=== PATIENT | male | born 1940 | race Caucasian/White ===

== ENCOUNTER 2017-03-02 08:30 | Inpatient (IN) | payer MEDICARE, OTHER ==
[2017-02-24 13:44] LABS: ABSOLUTE BASOPHILS 0.1 thou/uL (0.0-0.2); ABSOLUTE EOSINOPHILS 0.4 thou/uL (0.0-0.7); ABSOLUTE LYMPHOCYTES 2.3 thou/uL (0.8-5.3); ABSOLUTE MONOCYTES 0.6 thou/uL (0.0-1.2); ABSOLUTE NEUTROPHILS 5.6 thou/uL (1.6-8.1); BASOPHILS 1.3 %; EOSINOPHILS 4.6 %; HEMATOCRIT 43.1 % (42.0-52.0); HEMOGLOBIN 14.5 gm/dL (14.0-18.0); LYMPHOCYTES 25.4 %; MCH 30.5 pg (26.0-34.0); MCHC 33.6 g/dL (28.0-37.0); MCV 90.9 fL (80.0-100.0); MONOCYTES 6.6 %; MPV 7.6 fl. (7.2-11.1); NUCLEATED RBCS 0 /100WBC; PLATELET COUNT* 286 thou/uL (150-400); POLYS 62.1 %; RBC 4.74 mil/uL (4.50-6.00); RDW-CV 13.6 % (10.5-14.5)
[2017-02-24 13:58] LABS: APTT 26.3 Seconds (25.0-31.3); PROTIME 10.1 Seconds (9.20-11.50)
[2017-02-24 14:04] LABS: ALBUMIN 3.7 g/dL (3.4-5.0); CALCIUM 9.2 mg/dL (8.5-10.1); CREATININE 1.5 mg/dL (0.6-1.3); POTASSIUM 3.7 mmol/L (3.5-5.1); TOTAL BILIRUBIN 0.7 mg/dL (<0.1-1.0); TOTAL PROTEIN 7.7 g/dL (6.4-8.2)
[2017-02-24 14:59] LABS: ESR (SEDRATE) 7 mm/hr (0-20)
--- NOTE | 2017-02-24 16:50 | EKG ---
[place] [address] ELECTROCARDIOGRAM REPORT Name: LISA PRAJAPATI Room: PRE IN [facility]#: [id number] Admission: Attend Phys: Brook Watkins Discharge: Date of : 44 Report #: [id number] THIS REPORT FOR: //name// [facility] Test Date: 2017-02-24 Test Time: 13:09:28 Pat Name: LISA PRAJAPATI Department: Room: Gender: M Snowsport Instructor: : 1940 Requested By: Mariusz Tse Order Number: [id number] MD: Ranjit Hilliard Measurements Intervals [place] Rate: 62 P: 49 [place]: 189 QRS: -54 QRSD: 103 T: 38 QT: 410 QTc: 417 Interpretive Statements Sinus rhythm Left anterior fascicular block Baseline wander in lead(s) II,aVR,V2,V3,V4,V5,V6 No previous ECG available for comparison Electronically Signed On 02-24-2017 16:50:23 ART HISTORIAN by Ranjit Hilliard [email or web address] <ELECTRONICALLY SIGNED> By: Ranjit Hilliard MD, [facility] 02/24/17 3190 1309 1309 Ranjit Hilliard MD, FACC /EPI
[2017-02-25 17:07] LABS: GLYCOHEMOGLOBIN (HGB A1C) 6.5 % (4.8-5.6)
[~2017-03-02] VITALS: Ht 172.7 cm; Wt 86.2 kg
[~2017-03-02 08:30] MED LIST: ATORVASTATIN CA40 MG PO; CHILDREN'S ASPI81 M1 PO; GLIPIZIDE 10 MG10 MG PO; LISINOPRIL20 MG PO; METFORMIN HCL500 MG PO; SYNTHROID100 MCG PO
[2017-03-02 10:29] VITALS: BP 129/84
[2017-03-02 15:45] VITALS: BP 140/80
--- NOTE | 2017-03-02 18:08 | NUR ---
ALERT AND ORIENTED X4. UP WITH ASSIST X1 WITH WALKER AND GAIT BELT. IV IS PATENT AND INFUSING. DENIES NEED FOR PAIN MEDICATION. IV NAUSEA MEDICATION GIVEN IN PACU, NO COMPLAINTS SINCE ARRIVING ON UNIT. CAP-NO IN PLACE. HEMOVAC IN PLACE. VSS ON 2L O2. CALL LIGHT IS WITHIN REACH. HOURLY ROUNDS HAVE BEEN MAINTAINED SINCE ARRIVING ON UNIT. NURSING WILL CONTINUE TO MONITOR.
--- NOTE | 2017-03-02 18:21 | NUR ---
PATIENT ARRIVED TO UNIT AT 1500. ALERT AND ORIENTED X4. IV SALINE LOCKED AT THIS TIME. DENIES PAIN AT THIS TIME. NAUSEA MANAGED WITH IV NAUSEA MEDICATION IN PACU. VSS ON 2L O2. PATIENT HAS BEEN ORIENTED TO ROOM. CALL LIGHT IS WITHIN REACH. NURSING WILL CONTINUE TO MONITOR.
[2017-03-02 20:00] VITALS: BP 121/78
[2017-03-02 23:54] VITALS: BP 95/58
[2017-03-03 04:23] LABS: HEMATOCRIT 35.8 % (42.0-52.0)
[2017-03-03 04:37] VITALS: BP 102/67
--- NOTE | 2017-03-03 05:24 | NUR ---
PATIENT ALERT AND ORIENTED. VITALS STABLE. ON 2L OF OXYGEN, CAPNO IN PLACE. PAIN CONTROLLED WITH PO MEDICATION. RIGHT KNEE DRESSING C/D/I. HEMOVAC IN PLACE. VOIDS PER URINAL, SMALL AMOUNTS AT A TIME. HOURLY ROUNDS. BED ALARM IN USE. NURSING WILL CONTINUE TO MONITOR.
[2017-03-03 08:00] VITALS: BP 98/67
--- NOTE | 2017-03-03 14:18 | NUR ---
PT.LIVES ALONE. HE IS NORMALLY INDEPENDENT AT HOME. HIS DAUGHTER LIVES 2 DOORS DOWN. HE SAID HIS SISTER SHOULD BE ABLE TO COME TO STAY WITH HIM AT LEAST ONE NIGHT. PT.IS NON COMMITAL ABOUT HOW MANY NIGHTS SHE COULD STAY. TOLD HIM 'S RECOMMEND 3-4 DAYS/NIGHTS. HE ALSO DOES NOT HAVE PRESCRIPTION DRUG COVERAGE. HE USUALLY PAYS FOR HIS MEDS OUTRIGHT. HIS PHARMACY SAID ELIQUIS WOULD BE $200 WITH OUT INS. HE DOES HAVE A FRONT WHEEL WALKER. HE WOULD WANT TO USE OUTPT. THERAPY IN [facility] IF HE GOES HOME. HE SAID HE HAS SOMEONE THAT COULD DRIVE HIM. PLAN B WOULD BE TO GO TO THE [facility]ICAL [facility] SWING BED FOR A SKILLED STAY. REFERRAL FAXED TO [facility]-[phone]. HE CHOSE DR.RICK CORTEZ ADMITTING DRNestor, HIS PCP DOES NOT GO TO THE HOSPITAL. SHE WILL LET REVIEW INFORMATION AND CALL CM BACK. THIS PLAN WOULD BENEFIT HIM HE WOULD HAVE 24/7 NURSING CARE AND BE ABLE TO RECEIVE HIS ELIQUIS. CM WILL FOLLOW.
[2017-03-03 16:07] VITALS: BP 112/81
--- NOTE | 2017-03-03 16:24 | NUR ---
[facility] SWING BED SW CALLED BACK AND SAID THEY COULD ACCEPT PT. ON MONDAY IF READY FOR DISCHARGE. REPORT WOULD NEED TO BE CALLED TO NURSING AND DISCHARGE ORDERS FAXED. THEY CANNOT ARRANGE TRANSPORTATION ON MON. [facility] FAX:[phone]/ PHONE:[phone]RICK CORTEZ WOULD BE ADMITTING
--- NOTE | 2017-03-03 17:33 | NUR ---
WILL CHECK WITH CASE MANAGEMENT TOMORROW TO SEE IF PT. NEEDS TO BE SEEN FOR O.T. SERVICES TO BE ACCEPTED TO SNF. OTHERWISE, WILL FOLLOW O.T. PROTOCOL TO DEFER PT. TO P.T. AND NURSING.
[2017-03-03 20:00] VITALS: BP 111/75
--- NOTE | 2017-03-03 20:19 | NUR ---
PATIENT COMFORTABLE REPORTED OFF TO NOC NURSE.
[2017-03-04 00:14] VITALS: BP 130/72
[2017-03-04 04:19] LABS: HEMATOCRIT 32.6 % (42.0-52.0); HEMOGLOBIN 11.1 gm/dL (14.0-18.0)
[2017-03-04 04:23] VITALS: BP 118/71
--- NOTE | 2017-03-04 05:02 | NUR ---
ASSUMED CARE OF PATIENT AT APPROXIMATELY 2000. PATIENT A/O X 4 AND VSS. PATIENT C/O GROIN PAIN X 1 OVERNIGHT. POST OP DAY 1, HEMOVAC HAS BEEN REMOVED, KELI HOSE IN PLACE, AND CHAMP WRAP ON LEG C/D/I. PATIENT CONTINUES TO HAVE OXYGEN SATS WNL ON RA. HOURLY ROUNDS PERFORMED. NURSING TO FOLLOW-UP NECESSARY. ALL FALL PRECAUTIONS IN PLACE, INCLUDING CALL LIGHT WITHIN REACH. WILL CONTINUE TO MONITOR CLOSELY.
[2017-03-04 08:42] VITALS: BP 111/82
--- NOTE | 2017-03-04 15:45 | NUR ---
DISCUSSED DISCHARGE PLANNED FOR MONDAY TO [facility] SWING BED FOR THERAPIES. HE WAS AGREEABLE. DISCUSSED TRANSPORTATION. HE SAID HIS SISTER CAN TAKE HIM UP THERE. TOLD HIM TO PLAN FOR DISCHARGE TIME BETWEEN 1-2PM TOMORROW. HE IS NOT TO TAKE CPM WITH HIM. SNF WILL ORDER A CPM FOR HIM. SEE CASE MANAGEMENT NOTE FROM 03/03 FOR PHONE NUMBER AND FAX TO [facility].
[2017-03-04 17:17] VITALS: BP 103/66
--- NOTE | 2017-03-04 17:19 | NUR ---
ASSUMED CARE OF PATIENT AFTER REPORT THIS MORNING. PATIENT AWAKE, ALERT, AND ORIENTED APPROPRIATELY. PHYSICAL ASSESSMENT COMPLETED AND CHARTED. COMPLAINED OF PAIN THIS SHIFT. GIVEN PRN AND SCHEDULED MEDICATIONS, SEE EMAR FOR DOCUMENTATION. VITAL SIGNS STABLE. OXYGEN SATURATION WITHIN NORMAL LIMITS ON ROOM AIR. PATIENT TRANSFERS AND AMBULATES WITH ASSISTANCE FROM STAFF. USES CALL LIGHT APPROPRIATELY. DENIES NEEDS AT THIS TIME. CALL LIGHT WITHIN REACH. NURSING WILL CONTINUE TO MONITOR.
[2017-03-04 19:35] VITALS: BP 94/68
[2017-03-05] VITALS: BP 109/77
[2017-03-05 04:17] VITALS: BP 109/72
--- NOTE | 2017-03-05 05:04 | NUR ---
PATIENT HAS REMAINED ALERT AND ORIENTED X 4 THROUGHOUT THE SHIFT AND RESTING QUIETLY ON HOURLY ROUNDS. HAS DENIED NEED FOR PAIN MEDICATION OVERNIGHT, WILL, HOWVEVER, OFFER SOMETHING PRIOR TO EARLY AM CPM SESSION. PATIENT TOLERATED 0-80 DEGREES FLEXION AT HS X 2 HOURS. DRESSING RIGHT KNEE CLEAN AND DRY. VOIDING PER URINAL WITH ADEQUATE OUTPUT. PASSING GAS, NO BM. MILK OF MAGNESIA AT HS WITH SOFTNER PROVIDED. VITAL SIGNS STABLE. HAVE NOT TRANSFERED OUT OF BED TONIGHT. INDEPENDENT WITH MOBILITY IN THE BED. PATIENT IS PLANNING ON DISCHARGE TODAY TO [facility] BED. PROGRESSING TOWARDS DISCHARGE GOALS. CONTINUE TO MONITOR.
[2017-03-05 07:54] VITALS: BP 103/67
[2017-03-05] MEDS ORDERED: HYDROCODONE-AP1 EAC6 PO (10:47)
[2017-03-05] MEDS ORDERED: ELIQUIS2.5 MG PO (10:48)
[2017-03-05] MEDS ORDERED: OXYCODONE HCL 55 MG PO (10:48)
[2017-03-05] MEDS ORDERED: COLACE100 MG PO (10:49)
[2017-03-05] MEDS ORDERED: MILK OF MA2400 MG/10 PO (10:52)
[2017-03-05] MEDS ORDERED: METAMUCIL1 EAC1 PO (10:52)
[2017-03-05] MEDS ORDERED: ASPIRIN325 PO (10:56)
[2017-03-05 10:57] VITALS: BP 103/67
--- NOTE | 2017-03-05 13:05 | NUR ---
ASSUMED CARE OF PATIENT AFTER REPORT THIS MORNING. PATIENT AWAKE, ALERT, AND ORIENTED APPROPRIATELY. PHYSICAL ASSESSMENT COMPLETED AND CHARTED. COMPLAINED OF PAIN THIS SHIFT. GIVEN PRN AND SCHEDULED MEDICATIONS, SEE EMAR FOR DOCUMENTATION. PATIENT HAS TRANSFERRED AND AMBULATED WITH ASSIST FROM STAFF, USES CALL LIGHT APPROPRIATELY. RECEIVED ORDERS TO TRANSFER PATIENT TO [facility] FOR SWING BED. REPORT CALLED AND GIVEN TO JOSUE COLÓN. DISCHARGE PAPERWORK COMPLETED AND SIGNED BY ALL APPROPRIATE PARTIES, ON PATIENT'S CHART. IV DISCONTINUED. PATIENT'S RIDE WILL BE HERE AT 1400 TO TRANSFER PATIENT TO [facility] THEY DO NOT HAVE TRANSPORTATION ON SUNDAYS. NURSING WILL CONTINUE TO MONITOR.
--- NOTE | 2017-03-05 13:57 | NUR ---
PATIENT'S RIDE ARRIVED TO TRANSPORT PATIENT TO [facility]. PATIENT DISCHARGED AT THIS TIME.
--- NOTE | 2017-03-07 10:06 | S ---
[address] [address] SURGICAL PATH RPT PROCEDURE Name: SANTANA PRAJAPATI Room: [address] IN [facility].#: [id number] Admission: 03/02/17 Date of : 44 Discharge: 03/05/17 Report #: [id number] Path Case #: [id number] PATHOLOGY REPORT COLLECTION DATE: 03/02/2017 RECEIVED DATE: 03/02/2017 SUBMITTING PHYS: Dr. Mariusz Tse OTHER PHYS: Dr. Bernard Hankins SPECIMEN(S) RECEIVED: A.Right knee bone and tissue * * * * * * * * * * * * FINAL DIAGNOSIS: Right knee bone and tissue, total knee replacement: - Benign synovium, benign meniscus and dense fibrous connective tissue with microcystic degenerative changes and benign bone and cartilage with severe degenerative changes. (LEEANN:mgr; 03/06/2017) PATHOLOGIST: Ezequiel Duarte M.D. REPORT ELECTRONICALLY SIGNED BY: Ezequiel Duarte M.D. DATE/TIME: 03/06/2017 15:53 * * * * * * * * * * * * GROSS PATHOLOGY: Received in formalin labeled "Santana Prajapati, right knee bone and tissue," are multiple segments of bone, including tibial plateau, measuring 14.9 x 12.3 x 2.8 cm in aggregate dimensions admixed with soft tissue; meniscus is present. The specimen shows focal eburnation of the articular surfaces. In Store Representative sections of bone and soft tissue are submitted in cassette A1, following decalcification. (DAC; 03/03/2017) CLINICAL HISTORY: Right knee degenerative joint disease INITIAL CPT CODE(S): A; 33659, 18325 Professional services performed by [facility] [place] [address] Technical services performed by [facility] at [address] [place] [address] SURGICAL PATH RPT PROCEDURE Name: SANTANA PRAJAPATI Room: [address]#: [id number] Admission: 03/02/17 Date of : 44 Discharge: 03/05/17 Report #: [id number] Path Case #: [id number] [place] [address]. [facility] [address] [place] [address] PHONE: [phone] DIRECTOR: Anderson Anaya M.D. * * * END OF REPORT * * *
--- NOTE | 2017-03-16 12:47 | OP ---
[address] [address] OPERATIVE REPORT Name: LISA PRAJAPATI Room: [address]#: [id number] Admission: 03/02/17 Attend Phys: Brook Watkins Discharge: 03/05/17 Date of : 44 Report #: [id number] THIS REPORT FOR: //name// CC: Mariusz Glez DICTATED BY: Nick Tellez DATE OF SERVICE: 03/02/2017 PREOPERATIVE DIAGNOSIS: Advanced degenerative joint disease, right knee. POSTOPERATIVE DIAGNOSIS: Advanced degenerative joint disease, right knee. PROCEDURE: Right total knee arthroplasty utilizing the following components, a RideApart MicroPort total knee evolution arthroplasty system with the following components: 1. A size 6 PS femoral component. 2. A size 6+ tibial baseplate. 3. A size 32 mm tri-peg patella. 4. A 14-mm PS polyethylene insert. 5. Bone cement. SURGEON: Mariusz Tse DO DIAMOND BLENDER: Nick Tellez DO ANESTHESIA: General with adductor canal block. ESTIMATED BLOOD LOSS: 100 mL. ANTIBIOTICS: 2 grams Ancef IV prior to incision. TOURNIQUET TIME: 66 minutes at 300 mmHg. COMPLICATIONS: None. SPECIMENS: Bone sent for gross pathology. DRAINS: One medium Hemovac. CONDITION OF THE PATIENT: Stable to PACU. FINDINGS: Surgeon inspection of the joint demonstrated severe degenerative joint disease with erosion of the cartilage over the medial femoral condyle. [facility] [address] [place] [address] OPERATIVE REPORT Name: LISA PRAJAPATI Room: [address] IN .R.#: [id number] Admission: 03/02/17 Attend Phys: Brook Watkins Discharge: 03/05/17 Date of : 42 Report #: [id number] There were also significant bony sclerosis and osteophytic changes throughout all 3 compartments. There was irregular appearing joint effusion. INDICATIONS: The patient is a pleasant 77-year-old male with longstanding right knee pain. He has had previous arthroscopic surgery to the knee and also had extensive nonoperative care including intra-articular steroid injections and oral anti-inflammatories. He has considerable pain with activities of daily living. After discussing the risks, benefits, complications, alternatives and indications to right total knee arthroplasty including, but not limited to bleeding, infection, neurovascular injury, continued pain, need for further surgery, DVT, PE and the inherent risk of anesthesia, he is willing to proceed. Consent is available in the chart. DESCRIPTION OF PROCEDURE: The patient was seen in preoperative holding and operative site initialed by surgeon. He was brought back to operative suite, placed on a well-padded table in supine position. General anesthesia was induced. A well-padded tourniquet was placed on right upper thigh. Right lower extremity was sterilely prepped and draped in normal fashion. Time-out was performed in usual fashion, all attendances were in agreement. The leg was exsanguinated via gravity and the tourniquet inflated to 300 mmHg. A midline incision was made with a 10-blade scalpel through the subcutaneous tissue. A new knife blade was then used to make a medial parapatellar arthrotomy. Patella was everted and the anterior horn of the medial and lateral meniscus was excised. The Hoffa's fat pad was trimmed and the ACL and PCL were excised sharply. Intramedullary reamer was then used to gain access to the femoral canal. A distal femoral cutting block was pinned, taken extra 2 mm resection for preoperative extension lag. Oscillating saw was used to make a distal femoral cut through captured cutting block. Excess bone was removed. The distal femur was then sized to a size 6 and a 4-in-1 cutting block pinned into place with 3 degrees of external rotation with regard to posterior condylar axis. This was perpendicular to Whitesides of line. All four cuts were made with oscillating saw through the captured cutting block. Excess bone was removed. The box cutting guide was then assembled and marked and pinned into place. Oscillating saw was then used in combination with an osteotome to resect the femoral box. Bone was removed. Attention was then turned to the tibia where the medial and lateral meniscus was excised with an electrocautery and the extramedullary guide was aligned with the medial third of the tibia tubercle, tibial crest, and the middle of talus. This was pinned into place. The oscillating saw was used to make a proximal tibia cut in standard fashion. Excess bone was removed. The knee was brought into full extension and there was adequate bony resection. The knee was once again flexed and the tibia was sized and trial baseplate was pinned into place. Trial femoral component was impacted into place and a trial spacer was placed. The knee was brought through full range of motion, had excellent stability to varus and valgus testing and full range of motion. The attention was then turned to the patella where electrocautery was used to perform neurolysis of the patella and an oscillating [address] [address] OPERATIVE REPORT Name: LISA PRAJAPATI Brook Room: [address]#: [id number] Admission: 03/02/17 Attend Phys: Bernard AleishaBrook Avalos Discharge: 03/05/17 Date of : 44 Report #: [id number] saw used to make a freehand patellar cut in a standard fashion. The patella was sized and 3-peg holes were drilled. Trial patellar button was placed and the knee was brought through full range of motion showing excellent tracking of the patella. The proximal tibia was prepared with a cruciform punch and reamer in standard fashion. All trial components were removed and all bony surfaces were thoroughly irrigated with normal saline. Cement was mixed on the back table and applied to the final component and applied the bony surfaces. These were impacted into place and excess cement was removed. A 14-mm spacer was used for compression while cement was hardening. The knee was thoroughly irrigated with normal saline. Topical TXA was applied to the joint and allowed to congeal for 5 minutes. Once allowing adequate time for the cement to harden, the knee was brought through full range of motion and a 14-mm spacer was found to be most stable and still allow full range of motion. The proximal tibia was exposed and a final polyethylene insert was impacted into place. A medium Hemovac was placed in standard fashion and tourniquet was deflated for a total tourniquet time of 66 minutes. Electrocautery was utilized for hemostasis. The knee was thoroughly irrigated with normal saline and the medial parapatellar arthrotomy was closed with #1 Vicryl in ejyimk-lw-nnakc fashion. Subcutaneous tissues was thoroughly irrigated with normal saline and the subcutaneous tissue was closed with 2-0 Vicryl in simple inverted interrupted fashion followed by running 3-0 Stratafix on the skin and skin glue. Dressing was placed in the form of Mepilex Ag dressing, 4 x 4s, ABDs, soft roll and compressive Inderjit wrap with a drain sponge. The patient was awoken from general anesthesia and brought to PACU in stable fashion. He tolerated the procedure well. Sponge and needle counts were correct times 2. Dr. Tse was present throughout all critical aspects of the surgery. <ELECTRONICALLY SIGNED> By: Mariusz Tse DO 03/16/17 1247 1350 1533Gkuldip Tse DO /nt
== END 2017-03-05 13:58 | DRG 470 ==
LOC: M.TBA 08:30 → M.ORTHSURG 08:30 → M.PRE 08:33 → M.ORTHSURG 15:01
PROVIDERS: Orthopaedic Surgery; ADMIT Internal Medicine
PROC: 0SRC0J9 Replacement of Right Knee Joint with Synthetic Substitute, Cemented, Open Approach (ICD-10-PCS; principal; 2017-03-02)
PROC: 3E0T3BZ Introduction of Anesthetic Agent into Peripheral Nerves and Plexi, Percutaneous Approach (ICD-10-PCS; 2017-03-02)
DX: M17.11 Unilateral primary osteoarthritis, right knee (principal); E11.9 Type 2 diabetes mellitus without complications; E03.9 Hypothyroidism, unspecified; E78.5 Hyperlipidemia, unspecified; R33.9 Retention of urine, unspecified; Z79.84 Long term (current) use of oral hypoglycemic drugs

== ENCOUNTER 2018-02-08 07:04 | Inpatient (IN) | payer MEDICARE, OTHER ==
[2018-02-01 10:08] LABS: ABSOLUTE EOSINOPHILS 0.3 thou/uL (0.0-0.7); ABSOLUTE LYMPHOCYTES 2.1 thou/uL (0.8-5.3); ABSOLUTE MONOCYTES 0.5 thou/uL (0.0-1.2); ABSOLUTE NEUTROPHILS 4.4 thou/uL (1.6-8.1); BASOPHILS 0.6 %; EOSINOPHILS 4.1 %; HEMOGLOBIN 13.5 gm/dL (14.0-18.0); LYMPHOCYTES 28.5 %; MCH 29.4 pg (26.0-34.0); MCHC 32.9 g/dL (28.0-37.0); MCV 89.3 fL (80.0-100.0); MONOCYTES 7.3 %; MPV 7.4 fl. (7.2-11.1); NUCLEATED RBCS 0 /100WBC; PLATELET COUNT* 265 thou/uL (150-400); POLYS 59.5 %; RBC 4.58 mil/uL (4.50-6.00); RDW-CV 14.2 % (10.5-14.5); WBC 7.5 thou/uL (4.0-11.0)
[2018-02-01 10:18] LABS: ALBUMIN 3.6 g/dL (3.4-5.0); CALCIUM 9.2 mg/dL (8.5-10.1); CREATININE 1.2 mg/dL (0.6-1.3); TOTAL BILIRUBIN 0.4 mg/dL (<0.1-1.0); TOTAL PROTEIN 7.1 g/dL (6.4-8.2)
[2018-02-01 10:40] LABS: APTT 27.8 Seconds (25.0-31.3); PROTIME 10.1 Seconds (9.20-11.50)
[2018-02-01 11:40] LABS: ESR (SEDRATE) 14 mm/hr (0-20)
[2018-02-01 21:07] LABS: GLYCOHEMOGLOBIN (HGB A1C) 6.7 % (4.8-5.6)
--- NOTE | 2018-02-02 14:51 | EKG ---
[place] [address] ELECTROCARDIOGRAM REPORT Name: LISA PRAJAPATI [facility] IN [facility]#: [id number] Admission: Attend Phys: Mariusz Tse, Discharge: Date of : 44 Report #: [id number] THIS REPORT FOR: //name// [facility] Test Date: 2018-02-01 Test Time: 10:25:54 Pat Name: LISA MATAON Department: Room: Gender: M Promotion Specialist: : 1940 Requested By: Mariusz Tse Order Number: [id number] Reading MD: Nolan Torre Measurements Intervals [place] Rate: 55 P: 47 SD: 210 QRS: -45 QRSD: 101 T: 10 QT: 447 QTc: 428 Interpretive Statements Sinus rhythm LAD, consider left anterior fascicular block Compared to ECG 02/24/2017 13:09:28 No significant changes Electronically Signed On 02-02-2018 14:51:14 IMPORT EXPORT AGENT by Nolan Torre [email or web address] <ELECTRONICALLY SIGNED> By: Nolan Torre MD, [facility] 02/02/18 1451 1025 1025 Nolan Torre MD, FACC /EPI
[~2018-02-08] VITALS: Ht 172.7 cm; Wt 86.2 kg
--- NOTE | ~2018-02-08 | OP ---
[facility] [address] [place] [address] OPERATIVE REPORT Name: LISA PRAJAPATI Room: [address] IN .R.#: [id number] Admission: 02/08/18 Attend Phys: Brook Watkins Discharge: Date of : 44 Report #: [id number] THIS REPORT FOR: //name// CC: Mariusz Glez DICTATED BY: Keon Lucas DO DATE OF SERVICE: 02/08/2018 PREOPERATIVE DIAGNOSIS: Left shoulder rotator cuff arthropathy. POSTOPERATIVE DIAGNOSIS: Left shoulder rotator cuff arthropathy. PROCEDURE: Left reverse total shoulder arthroplasty. ORTHOPEDIC IMPLANTS: Tornier size 4B humeral stem with a high offset reversed tray and Tornier 9 mm reversed insert, Tornier 25 x 30 mm threaded baseplate and Tornier 36 mm centered glenosphere. SURGEON: Mariusz Tse DO. ASSISTANTS: 1. Keon Lucas DO. 2. Fletcher Christianson DO. 3. Ester Dillon DO. ESTIMATED BLOOD LOSS: 100 mL. PREOPERATIVE ANTIBIOTICS: 2 grams Ancef. SPECIMENS: None. COMPLICATIONS: None. DRAINS: None. CONDITION: The patient is stable to PACU. INDICATIONS FOR PROCEDURE: This is a 78-year-old male who has been dealing with left shoulder pain and dysfunction with some pseudoparalysis for the last several months. He has known rotator cuff arthropathy with a high riding humeral head. DESCRIPTION OF PROCEDURE: Once written and verbal consent was obtained, the [facility] [address] [place] [address] OPERATIVE REPORT Name: LISA PRAJAPATI Room: [address] IN [facility].#: [id number] Admission: 02/08/18 Attend Phys: Brook Watkins Discharge: Date of : 44 Report #: [id number] patient was taken from the preoperative holding area to the operating suite, given the benefit of general anesthesia and placed in beach chair with the left upper extremity was sterilely prepped and draped in crime scene investigator manner. Timeout was performed to verify the correct operative site, location and procedure. Next, a standard deltopectoral incision was made just lateral to the coracoid process. Sharp dissection down to the level of the deltoid and the cephalic vein was identified and the deltopectoral interval was identified and subdeltoid adhesions were broken by blunt dissection and Salazar deltoid retractor was used to retract the deltoid. Next, the conjoined tendon was retracted medially and a soft tissue subscap peel technique was performed to dislocate the left shoulder. Next, an entry guide was used to make our humeral cut at 30 degrees of retroversion. Next, entry reamers and broaches were used and broached up to a size 4B implant. Next, attention was taken to the glenoid as the posterior glenoid retractor was placed. The subscap and anterior glenohumeral ligaments were and ligaments resected. The labrum was resected 360 degrees. Next, a guidepin was placed and glenoid surface was reamed and the glenosphere center hole was drilled and a glenoid baseplate with PEG was secured in 2 places with 2 screws, one superiorly and one inferiorly were placed in the baseplate and next a 36 mm glenosphere was impacted into place. Next, attention was taken back to the humerus. A trial component with a high offset and 9 mm polyethylene insert was utilized, found to have appropriate tension and length and stability. These trial components were removed and final implants were impacted into place. There was a nice firm reduction and no instability through range of motion. The wound was thoroughly irrigated. The subscap was repaired with 2-0 FiberWire suture on the lesser tuberosity. Next, the deltoid interval was closed with a #1 Vicryl suture, 2-0 Vicryl suture in the subcutaneous tissues as well as running Stratafix and surgical glue and a silver dressing. The patient was placed in a SlingShot. The patient was awakened and taken to PACU in stable condition. By: 1246 [id number] Tse DO /philipp
[~2018-02-08 07:04] MED LIST changes: +ASPIRIN325 PO; +COLACE100 MG PO; +ELIQUIS2.5 MG PO; +HYDROCODONE-AP1 EAC6 PO; +LISINOPRIL-HCT1 EAC1 PO; +METAMUCIL1 EAC1 PO; +MILK OF MA2400 MG/10 PO; +OXYCODONE HCL 55 MG PO; +TYLENOL EXTRA500 MG PO
[2018-02-08 09:00] VITALS: BP 142/84
[2018-02-08 14:52] VITALS: BP 123/72
[2018-02-08 15:24] LABS: ABSOLUTE BASOPHILS 0.1 thou/uL (0.0-0.2); ABSOLUTE EOSINOPHILS 0.3 thou/uL (0.0-0.7); ABSOLUTE LYMPHOCYTES 2.9 thou/uL (0.8-5.3); ABSOLUTE MONOCYTES 0.7 thou/uL (0.0-1.2); ABSOLUTE NEUTROPHILS 4.8 thou/uL (1.6-8.1); BASOPHILS 0.6 %; EOSINOPHILS 3.8 %; HEMATOCRIT 39.6 % (42.0-52.0); HEMOGLOBIN 13.3 gm/dL (14.0-18.0); LYMPHOCYTES 32.8 %; MCH 29.9 pg (26.0-34.0); MCHC 33.5 g/dL (28.0-37.0); MCV 89.3 fL (80.0-100.0); MONOCYTES 7.9 %; MPV 7.8 fl. (7.2-11.1); NUCLEATED RBCS 0 /100WBC; PLATELET COUNT* 276 thou/uL (150-400); POLYS 54.9 %; RBC 4.44 mil/uL (4.50-6.00); RDW-CV 14.5 % (10.5-14.5); WBC 8.8 thou/uL (4.0-11.0)
[2018-02-08 15:32] LABS: ALBUMIN 3.8 g/dL (3.4-5.0); CALCIUM 8.8 mg/dL (8.5-10.1); CREATININE 1.4 mg/dL (0.6-1.3); MAGNESIUM 1.7 mg/dL (1.8-2.4); POTASSIUM 4.1 mmol/L (3.5-5.1); TOTAL BILIRUBIN 0.4 mg/dL (<0.1-1.0); TOTAL PROTEIN 6.9 g/dL (6.4-8.2)
--- NOTE | 2018-02-08 17:41 | NUR ---
ASSUMED CARE OF PATIENT AFTER TRANSFER FROM PACU AT 1420. PATIENT ALERT AND ORIENTED X4. ASSESSMENT COMPLETED AND CHARTED. NO COMPLAINTS OF NAUSEA, OR SOA. PATIENT ON 2 LITERS [address]. PAIN HAS BEEN MINIMAL, STARTED ON ORAL PAIN MEDICATION. LEFT ARM IN IMMOBILIZER WITH POLAR PACK IN PLACE. MEPILEX DRESSING TO LEFT SHOULDER, CLEAN, DRY AND INTACT. FLUIDS AND MAGNESIUM INFUSED ORDERED. RESTED COMFORTABLY IN BED THROUGHOUT SHIFT. HOURLY ROUNDS COMPLETED, FALL PRECAUTIONS IN PLACE AND USES CALL LIGHT APPROPRIATELY. CALL LIGHT IN REACH, NURSIGN WILL CONTINUE TO MONITOR.
[2018-02-09] VITALS: BP 122/97
[2018-02-09 02:07] LABS: GLYCOHEMOGLOBIN (HGB A1C) 6.7 % (4.8-5.6)
[2018-02-09 04:00] VITALS: BP 104/68
[2018-02-09 04:38] LABS: HEMATOCRIT 32.7 % (42.0-52.0); MCH 29.8 pg (26.0-34.0); MCHC 33.9 g/dL (28.0-37.0); MPV 7.5 fl. (7.2-11.1); RBC 3.72 mil/uL (4.50-6.00); RDW-CV 14.3 % (10.5-14.5); WBC 11.8 thou/uL (4.0-11.0)
[2018-02-09 04:45] LABS: HEMOGLOBIN 11.1 gm/dL (14.0-18.0)
[2018-02-09 05:02] LABS: CALCIUM 8.3 mg/dL (8.5-10.1); CREATININE 1.4 mg/dL (0.6-1.3); POTASSIUM 3.9 mmol/L (3.5-5.1)
--- NOTE | 2018-02-09 07:08 | NUR ---
PATIENT HAS RESTED WELL THROUGHOUT THE NIGHT. VSS ON 2L 02 VIA NASAL CANNULA. DRESSING TO LEFT SHOULDER IS C/D/I AND IMMOBILIZER IN PLACE. PAIN WELL CONTROLLED WITH ORAL PAIN MEDICATION ORDERED AND CHARTED. IV IN RIGHT FOREARM-SL. PATIENT INSTRUCTED TO USE CALL LIGHT WHEN NEEDING ASSISTANCE. HOURLY ROUNDS MADE. WILL CONTINUE WITH PLAN OF CARE AND NURSING TO MONITOR.
[2018-02-09 09:52] VITALS: BP 104/66
[2018-02-09] MEDS ORDERED: NORCO 5-325 TA1 EACH PO (10:33)
[2018-02-09] MEDS ORDERED: ASPIRIN EC325 M1 PO (10:34)
[2018-02-09] MEDS ORDERED: SENNA S TABLET1 EACH PO (10:35)
[2018-02-09 12:00] VITALS: BP 90/55
[2018-02-09 12:21] VITALS: BP 104/66
--- NOTE | 2018-02-09 15:35 | NUR ---
ASSUMED CARE OF PATIENT AFTER REPORT AT APPROX 0730. ALERT ANDORIENTED X4. ASSESSMENT COMPLETED AND CHARTED. VSS ON ROOM AIR. NO COMPLAINTS OF NAUSEA, OR SOA. PAIN HAS BEEN MINIMAL AND MANAGED WITH ORAL MEDICATION. PATIENT WORKED WELL WITH THERAPIES TODAY. FALL PRECAUTIONS REMAINED IN PLACE, HOURLY ROUNDS MAINTAINED. PATIENT DISCHARGED AT 1437 WITH ALL PERSONAL BELONGINGS, PRESCRIPTIONS AND DISCHARGE INFORMATION.
== END 2018-02-09 14:40 | disposition home or self-care (01) | DRG 483 ==
LOC: M.PRE 07:04 → M.TBA 08:03 → M.ORTHSURG 08:03 → M.PRE 08:41 → M.ORTHSURG 13:37 → M.PRE 15:10 → M.ORTHSURG 02-09 14:40
PROVIDERS: Family Medicine; Orthopaedic Surgery; ADMIT Internal Medicine
PROC: 0RRK00Z Replacement of Left Shoulder Joint with Reverse Ball and Socket Synthetic Substitute, Open Approach (ICD-10-PCS; principal; 2018-02-08)
DX: M19.012 Primary osteoarthritis, left shoulder (principal); M75.102 Unspecified rotator cuff tear or rupture of left shoulder, not specified as traumatic; E11.22 Type 2 diabetes mellitus with diabetic chronic kidney disease; E03.9 Hypothyroidism, unspecified; N18.3 Chronic kidney disease, stage 3 (moderate); I12.9 Hypertensive chronic kidney disease with stage 1 through stage 4 chronic kidney disease, or unspecified chronic kidney disease; Z96.651 Presence of right artificial knee joint; E78.5 Hyperlipidemia, unspecified; Z79.899 Other long term (current) drug therapy; Z28.21 Immunization not carried out because of patient refusal